=== PATIENT | female | born 1995 | race Caucasian/White ===

== ENCOUNTER 2021-07-16 21:32 | Emergency (ER) | payer MEDICAID, SELFPAY ==
[~2021-07-16] VITALS: Ht 170.2 cm; Wt 85.7 kg
[2021-07-16 21:59] VITALS: BP_SYST 126
[2021-07-16] MEDS: KETOROLAC TROMETHAMINE 60 MG/2 ML VIAL IM ONE (22:51)
[2021-07-16] MEDS: ONDANSETRON 4 MG ODT TAB PO ONE (22:51)
[2021-07-16] MEDS ORDERED: ONDA4TAB5 PO (23:02)
[2021-07-16] MEDS ORDERED: PRED20TA PO (23:02)
[2021-07-16] MEDS ORDERED: IBUP800T54 PO (23:02)
[2021-07-16 23:25] VITALS: BP_SYST 126
== END 2021-07-16 23:25 | disposition home or self-care (01) ==
LOC: SED 21:32
DX: U07.1 COVID-19 (principal); F12.90 Cannabis use, unspecified, uncomplicated
CPT/HCPCS: 87426; 96372; 99283; J1885; Q0162; 36415